=== PATIENT | female | born 1990 | race Asian ===

== ENCOUNTER 2017-08-01 06:07 | Emergency (ER) | payer OTHER ==
[~2017-08-01] VITALS: Ht 154.9 cm; Wt 48.8 kg
[~2017-08-01 06:07] MED LIST: [UNRECOGNIZED DRUG - OTHER] PO
[2017-08-01 06:12] VITALS: BP 112/74; PULSE 106; RESP 18; TEMP 97.9; O2SAT 96
[2017-08-01] MEDS ORDERED: PREN29TA PO (06:54)
--- NOTE | 2017-08-01 07:28 | PD ---
HPI Chief Complaint: GI Complaint Time Seen by Provider: 07:21 Travel History International Travel<30 days: No Contact w/Intl Traveler<30days: No Traveled to known affect area: No History of Present Illness HPI The patient was seen and examined in the presence of the nurse. This patient complains of abdominal pain. Duration 6 hours. Severity is moderate. She also has nausea and vomiting. No fever or diarrhea or vaginal bleeding or vaginal discharge. She is reporting that she is 20 weeks dated by ultrasound. However, her uterus measures 25 cm above the umbilicus. Pain is worse in the right lower quadrant. Symptoms have no alleviating factors. No exacerbating factors. No history of abdominal surgery. PFSH Past Medical History ?: LMP: 20 weeks preg Social History Alcohol Use: Yes (Occ) Tobacco Use: No Substance Use: No Allergies-Medications (Allergen,Severity, Reaction): Coded Allergies: No Known Allergies (Verified , 02/02/09) Reported Meds & Prescriptions Reported Meds & Active Scripts Active Reported Plus Iron 29-1 mg ( Vit-Iron Carbonyl) 29 Mg Iron-1 Mg Tab 1 Tab PO DAILY Review of Systems General / Constitutional: No: Fever Eyes: No: Visual changes HENT: No: Headaches Cardiovascular: No: Chest Pain or Discomfort Respiratory: No: Shortness of Breath Gastrointestinal: Positive: Nausea, Vomiting, Abdominal Pain Genitourinary: Positive: Pelvic Pain, No: Dysuria Musculoskeletal: No: Pain Skin: No Rash Neurologic: No: Weakness Psychiatric: No: Depression Endocrine: No: Polydipsia Hematologic/Lymphatic: No: Easy Bruising Physical Exam Narrative GENERAL: Well-nourished, well-developed patient in no apparent distress. SKIN: Focused skin assessment reveals no rash and nodules. Skin is Warm and dry. HEAD: Atraumatic. Normocephalic. EYES: Pupils equal and round. No scleral icterus. No injection or drainage. ENT: No nasal bleeding or discharge. Mucous membranes pink and moist. NECK: Trachea midline. No JVD. CARDIOVASCULAR: Regular rate and rhythm. No murmur appreciated. RESPIRATORY: No accessory muscle use. Clear to auscultation. Breath sounds equal bilaterally. GASTROINTESTINAL: Abdomen soft, gravid uterus is noted, right lower quadrant is tender without rebound or guarding, left lower quadrant is much less tender, nondistended. Hepatic and splenic margins not palpable. MUSCULOSKELETAL: No obvious deformities. No clubbing. No cyanosis. No edema. NEUROLOGICAL: Awake and alert. No obvious cranial nerve deficits. Motor grossly within normal limits. Normal speech. PSYCHIATRIC: Appropriate mood and affect; insight and judgment normal. Data Data Last Documented VS Vital Signs Date Time Temp Pulse Resp B/P (MAP) Pulse Ox O2 Delivery O2 Flow Rate FiO2 08/01/17 10:39 97 18 100/63 (75) 98 Room Air 08/01/17 06:12 97.9 Orders Orders Complete Blood Count With Diff (08/01/17 07:21) Comprehensive Metabolic Panel (08/01/17 07:21) Lipase (08/01/17 07:21) Prothrombin Time / Inr (Pt) (08/01/17 07:21) Act Partial Throm Time (Ptt) (08/01/17 07:21) Urinalysis - C+S If Indicated (08/01/17 07:21) Iv Access Insert/Monitor (08/01/17 07:21) NPO (08/01/17 07:21) Sodium Chloride 0.9% Flush (Ns Flush) (08/01/17 07:30) Mri Abdomen W/O Contrast (08/01/17 ) Ondansetron Inj (Zofran Inj) (08/01/17 08:15) Labs Laboratory Tests Test 08/01/17 07:20 08/01/17 07:45 Urine Collection Type CLEAN CATCH Urine Color YELLOW Urine Turbidity CLOUDY Urine pH 6.5 Urine Specific [place] 1.015 Urine Protein NEG mg/dL Urine Glucose (UA) NEG mg/dL Urine Ketones 15 mg/dL Urine Occult Blood NEG Urine Nitrite NEG Urine Bilirubin NEG Urine Urobilinogen 0.2 MG/DL Urine Leukocyte Esterase NEG Urine RBC 0-3 /hpf Urine WBC 0-2 /hpf Urine Squamous Epithelial Cells > 8 /hpf Urine Amorphous Sediment LARGE Microscopic Urinalysis Comment CULT NOT INDICATED Urine Collection Time 07:20 White Blood Count 18.6 TH/MM3 Red Blood Count 4.16 MIL/MM3 Hemoglobin 13.1 GM/DL Hematocrit 37.2 % Mean Corpuscular Volume 89.4 FL Mean Corpuscular Hemoglobin 31.4 PG Mean Corpuscular Hemoglobin Concent 35.1 % Red Cell Distribution Width 12.0 % Platelet Count 222 TH/MM3 Mean Platelet Volume 7.9 FL Neutrophils (%) (Auto) 93.4 % Lymphocytes (%) (Auto) 4.8 % Monocytes (%) (Auto) 1.3 % Eosinophils (%) (Auto) 0.4 % Basophils (%) (Auto) 0.1 % Neutrophils # (Auto) 17.4 TH/MM3 Lymphocytes # (Auto) 0.9 TH/MM3 Monocytes # (Auto) 0.2 TH/MM3 Eosinophils # (Auto) 0.1 TH/MM3 Basophils # (Auto) 0.0 TH/MM3 CBC Comment DIFF FINAL Differential Comment Prothrombin Time 9.6 SEC Prothromb Time International Ratio 0.9 RATIO Activated Partial Thromboplast Time 25.9 SEC Blood Urea Nitrogen 9 MG/DL Creatinine 0.46 MG/DL Random Glucose 86 MG/DL Total Protein 7.3 GM/DL Albumin 3.4 GM/DL Calcium Level 8.8 MG/DL Alkaline Phosphatase 53 U/L Aspartate Amino Transf (AST/SGOT) 23 U/L Alanine Aminotransferase (ALT/SGPT) 27 U/L Total Bilirubin 0.3 MG/DL Sodium Level 139 MEQ/L Potassium Level 3.1 MEQ/L Chloride Level 106 MEQ/L Carbon Dioxide Level 25.9 MEQ/L Anion Gap 7 MEQ/L Estimat Glomerular Filtration Rate 161 ML/MIN Lipase 176 U/L MDM Medical Decision Making Medical Screen Exam Complete: Yes Emergency Medical Condition: Yes Medical Record Reviewed: Yes Differential Diagnosis Appendicitis, colitis, labor, Narrative Course I have reviewed the patient's electronic medical record. IV placed and labs sent. IV Zofran given Urinalysis Cervix is closed. Bedside transabdominal ultrasound reveals intrauterine fetus with good heart rate of 140 and a lot of movement. Chief concern is appendicitis. labor is in the differential. I reviewed with the radiologist. I am ordering an MRI of the abdomen and pelvis to evaluate for appendicitis primarily. MRI is negative for appendicitis Labs are reviewed She feels improved upon recheck I reviewed in detail with her OB physician Dr. Cervantes He recommends a discharge home. She has an appointment with him on Friday He does not recommend sending her to labor and delivery. He recommends that she go to labor and delivery if she has worsening Diagnosis Primary Impression: Abdominal pain Qualified Codes: R10.31 - Right lower quadrant pain Additional Impression: Qualified Codes: Z3A.20 - 20 weeks gestation of Additional Instructions: Follow-up with OB physician Go to labor and delivery if worsening Med/Other Pt SpecificInfo: Other Disposition: 01 DISCHARGE HOME Condition: Stable Esequiel Quezada MD Aug 01, 2017 07:28
[2017-08-01] MEDS ORDERED: SODIUM CHLORIDE 0.9% FLUSH 10 ML FLUSH IV FLUSH PRN (07:30)
[2017-08-01 07:40] LABS: BILIRUBIN, URINE NEG (NEG); BLOOD, URINE NEG (NEG); GLUCOSE,URINE NEG (NEG); KETONE, URINE 15 mg/dL (NEG); NITRITE,URINE NEG (NEG); PH, URINE 6.5 (5.0-8.5); URINE COLOR YELLOW (YELLW/STRAW); URINE LEUKOCYTE ESTERASE NEG (NEG)
[2017-08-01 07:52] LABS: RBC, URINE 0-3 /hpf (0-3); SQUAMOUS EPITHELIAL CELL URINE > 8 /hpf (0-5); WBC, URINE 0-2 /hpf (0-5)
[2017-08-01 07:53] LABS: AMORPHOUS SEDIMENT, URINE LARGE
[2017-08-01 07:57] LABS: AUTOMATED NEUTROPHIL # 17.4 TH/MM3 (1.8-7.7); BASOPHIL % 0.1 % (0.0-2.0); EOSINOPHIL # 0.1 TH/MM3 (0-0.4); EOSINOPHIL % 0.4 % (0.0-4.0); HEMATOCRIT 37.2 % (35.0-46.0); HEMOGLOBIN 13.1 GM/DL (11.6-15.3); LYMPH % 4.8 % (9.0-44.0); LYMPHOCYTE # 0.9 TH/MM3 (1.0-4.8); MEAN CELL VOLUME 89.4 FL (80.0-100.0); MEAN CORPUSCULAR HEMOGLOBIN 31.4 PG (27.0-34.0); MEAN CORPUSCULAR HGB CONC 35.1 % (32.0-36.0); MEAN PLATELET VOLUME 7.9 FL (7.0-11.0); MONO % 1.3 % (0.0-8.0); MONOCYTE # 0.2 TH/MM3 (0-0.9); NEUT % 93.4 % (16.0-70.0); PLATELET COUNT 222 TH/MM3 (150-450); RED BLOOD COUNT 4.16 MIL/MM3 (4.00-5.30); WHITE BLOOD COUNT 18.6 TH/MM3 (4.0-11.0)
[2017-08-01 08:04] LABS: CHLORIDE 106 MEQ/L (98-107); SODIUM (NA) 139 MEQ/L (136-145)
[2017-08-01 08:07] LABS: CALCIUM 8.8 MG/DL (8.5-10.1)
[2017-08-01 08:08] LABS: ALBUMIN 3.4 GM/DL (3.4-5.0); BICARBONATE 25.9 MEQ/L (21.0-32.0); BLOOD UREA NITROGEN 9 MG/DL (7-18); GLUCOSE,RANDOM 86 MG/DL (74-106)
[2017-08-01 08:09] LABS: INTERNATIONAL NORMALIZED RATIO 0.9 RATIO; PROTHROMBIN TIME - PATIENT 9.6 SEC (9.8-11.6)
[2017-08-01 08:11] LABS: ALT (GPT) 27 U/L (10-53); AST (GOT) 23 U/L (15-37); CREATININE 0.46 MG/DL (0.50-1.00); GLOMERULAR FILTRATION RATE 161 ML/MIN (>89)
[2017-08-01 08:12] LABS: TOTAL BILIRUBIN ADULT 0.3 MG/DL (0.2-1.0); TOTAL PROTEIN 7.3 GM/DL (6.4-8.2)
[2017-08-01 08:14] LABS: ALKALINE PHOSPHATASE 53 U/L (45-117)
[2017-08-01] MEDS ORDERED: ONDANSETRON HCL 4 MG/2 ML VIAL IVP ONE (08:15)
[2017-08-01 09:33] VITALS: BP 100/65; PULSE 97; RESP 16; O2SAT 97
[2017-08-01 10:39] VITALS: BP 100/63; PULSE 97; RESP 18; O2SAT 98
--- NOTE | 2017-08-01 10:47 | RADRPT ---
EXAM DATE/TIME: 08/01/2017 10:16 [facility] COMPARISON: No previous studies available for comparison. INDICATIONS : Appendicitis. Right lower abdominal pain. MEDICAL HISTORY : . SURGICAL HISTORY : None. ENCOUNTER: Initial ACUITY: 1 day PAIN SCORE: 4/10 LOCATION: Right lower quadrant abdomen TECHNIQUE: Multiplanar, multisequence magnetic resonance imaging of the abdomen was performed without contrast. FINDINGS: Intrauterine gestation is noted. The lower abdominal and pelvic bowel structures are grossly unremarkable with normal caliber noted th roughout. There is no free fluid or focal inflammatory change identified. There is mild probably physiologic prominence of the urinary collecting systems bilaterally right wor se the left. CONCLUSION: Negative Janak Baker MD on August 01, 2017 at 10:39 Board Certified Radiologist. This report was verified electronically.
[2017-08-01 12:15] VITALS: BP 93/66
== END 2017-08-01 12:18 | disposition home or self-care (01) ==
LOC: PHED 06:07 → PHEDA 10:54 → UNDOADMIN 10:54 → PHED 12:18
DX: O26.892 Other specified pregnancy related conditions, second trimester (principal); R10.31 Right lower quadrant pain; O21.9 Vomiting of pregnancy, unspecified; Z3A.20 20 weeks gestation of pregnancy
CPT/HCPCS: 74181; 80053; 81001; 83690; 85025; 85610; 85730; 96374; 99284; J2405